=== PATIENT | female | born 1960 | race Caucasian/White ===

== ENCOUNTER 2020-08-27 20:01 | Emergency (ER) | payer SELFPAY ==
[~2020-08-27 20:01] MED LIST: ASPIRIN EC81 MG PO; AUGMENTIN 875-1 EACH PO; CELEBREX200 MG PO; ENSURE ACTIVE296 ML PO; FLAGYL500 MG PO; FLUOXETINE HCL40 MG PO; LEVAQUIN750 MG PO; LIPITOR40 MG PO; LISINOPRIL40 MG PO; LOPRESSOR 25 MG25 MG PO; LOPRESSOR 50 MG50 MG PO; LOPRESSOR100 MG PO; LOPRESSOR50 MG PO; LORTAB 10-3251 EACH PO; NEOMYCIN SULFA500 MG PO; NORCO 7.5-3251 EACH PO; POTASSIUM CHLO10 MEQ PO; PROBIOTIC1 EAC1 PO; SYMBICORT 16010.2 GM INH; TIZANIDINE HCL4 MG PO; VANCOMYCIN HCL250 MG PO; ZESTRIL40 MG PO; ZOFRAN 4 MG TAB4 MG PO; ZOFRAN4 MG PO
[2020-08-27 21:03] LABS: RED BLOOD COUNT 4.19 M/UL (4.00-5.10); WHITE BLOOD COUNT 25.6 K/UL (4.5-11.0)
== END 2020-08-27 23:57 | disposition home or self-care (01) ==
LOC: ER1 20:01
PROVIDERS: Emergency Medicine
DX: A09 Infectious gastroenteritis and colitis, unspecified (principal); F17.210 Nicotine dependence, cigarettes, uncomplicated; I10 Essential (primary) hypertension; Z90.710 Acquired absence of both cervix and uterus; Z88.7 Allergy status to serum and vaccine; Z88.8 Allergy status to other drugs, medicaments and biological substances; Z88.5 Allergy status to narcotic agent
CPT/HCPCS: 80053; 81001; 83690; 84703; 85025; 93005; 99284; Q9967

== ENCOUNTER 2021-04-02 00:42 | Inpatient (IN) | payer OTHER ==
[~2021-04-02] VITALS: Ht 160 cm; Wt 72.3 kg
[2021-04-02 01:14] LABS: HEMOGLOBIN 13.5 gm/dl (12.3-15.3); RED BLOOD COUNT 4.98 M/UL (4.00-5.10); WHITE BLOOD COUNT 24.6 K/UL (4.5-11.0)
[2021-04-02 01:36] LABS: BUN/CREATININE RATIO 18 (0-10)
[2021-04-02] MEDS ORDERED: LISINOPRIL40 MG PO (08:24)
[2021-04-02] MEDS ORDERED: CYCLOBENZAPRINE10 MG PO (08:27)
[2021-04-02 10:30] LABS: ADENOVIRUS F 40/41 Not Detected (Negative); ASTROVIRUS Not Detected (Negative); CAMPYLOBACTER Not Detected (Negative); CLOSTRIDIUM DIFFICILE TOX A/B Not Detected (Negative); CRYPTOSPORIDIUM Not Detected (Negative); E.COLI 0157 Not Detected (Negative); ENTAMOEBA HISTOLYTICA Not Detected (Negative); ENTEROAGGREGATIVE E.COLI (EAEC Not Detected (Negative); ENTEROPATHOGENIC E.COLI (EPEC) Not Detected (Negative); ENTEROTOXIGENIC E.COLI (ETEC) Not Detected (Negative); GIARDIA LAMBLIA Not Detected (Negative); NOROVIRUS GI/GII Not Detected (Negative); PLESIOMONAS SHIGELLOIDES Not Detected (Negative); ROTOVIRUS A Not Detected (Negative); SALMONELLA Not Detected (Negative); SAPOVIRUS Not Detected (Negative); SHIG/ENTEROINVAS.ECOLI (EIEC) Not Detected (Negative); SHIGA-LIK TOX.PRO.E.COLI (STEC Not Detected (Negative); VIBRIO Not Detected (Negative); VIBRIO CHOLERAE Not Detected (Negative); YERSINIA ENTEROCOLITICA Not Detected (Negative)
[2021-04-02] MEDS ORDERED: CIPROFLOXACIN500 M1 PO (10:36)
[2021-04-02] MEDS ORDERED: HYDROCODON-ACE1 EAC2 PO (10:39)
--- NOTE | 2021-04-02 15:49 | NUR ---
04/02/21 1520 POST VOID RESIDUAL [address] DACOSTA NOTIFIED
[2021-04-03 07:36] LABS: RED BLOOD COUNT 4.12 M/UL (4.00-5.10); WHITE BLOOD COUNT 13.9 K/UL (4.5-11.0)
[2021-04-03 07:52] LABS: BUN/CREATININE RATIO 10 (0-10)
[2021-04-04 07:50] LABS: HEMOGLOBIN 10.6 gm/dl (12.3-15.3); WHITE BLOOD COUNT 13.5 K/UL (4.5-11.0)
[2021-04-04 08:55] LABS: BUN/CREATININE RATIO 8 (0-10)
[2021-04-04] MEDS ORDERED: HYDROCODON-ACE1 EAC2 PO (11:46)
[2021-04-04] MEDS ORDERED: FLAGYL500 MG PO (11:52)
[2021-04-04] MEDS ORDERED: FLOMAX 0.4 MG0.4 MG PO ×2 (11:52→11:59)
[2021-04-04] MEDS ORDERED: OMNICEF 300 MG300 MG PO (11:52)
[2021-04-04] MEDS ORDERED: PROTONIX 40 MG40 M1 PO (11:52)
[2021-04-04] MEDS ORDERED: ZESTRIL2.5 MG PO (11:59)
[2021-04-04] MEDS ORDERED: LIPITOR40 MG PO (11:59)
== END 2021-04-04 14:04 | disposition home or self-care (01) | DRG 872 ==
LOC: ER1 00:42 → CDU 05:25 → ER1 05:25 → MED SURG 4 05:26
PROVIDERS: Internal Medicine; Student in an Organized Health Care Education/Training Program; ADMIT Internal Medicine
DX: A41.9 Sepsis, unspecified organism (principal); A04.9 Bacterial intestinal infection, unspecified; N17.9 Acute kidney failure, unspecified; N13.30 Unspecified hydronephrosis; Z20.822 Contact with and (suspected) exposure to COVID-19; F17.210 Nicotine dependence, cigarettes, uncomplicated; J44.9 Chronic obstructive pulmonary disease, unspecified; D75.839 Thrombocytosis, unspecified; E78.5 Hyperlipidemia, unspecified; M32.9 Systemic lupus erythematosus, unspecified; E86.0 Dehydration; F41.8 Other specified anxiety disorders; I73.9 Peripheral vascular disease, unspecified; R33.9 Retention of urine, unspecified; D64.9 Anemia, unspecified; I10 Essential (primary) hypertension; Z79.899 Other long term (current) drug therapy; Z90.710 Acquired absence of both cervix and uterus; Z98.890 Other specified postprocedural states; Z87.440 Personal history of urinary (tract) infections; Z79.82 Long term (current) use of aspirin
CPT/HCPCS: 36415; 80053; 80307; 81001; 82550; 82553; 83605; 83690; 83874; 84484; 85025; 85027; 87040; 87449; 87507; 93005; 96374; 96375; 99285; J1335; J1650; J2270; J2405; J2543; J7030; Q9967; U0002